=== PATIENT | male | born 1935 | race Caucasian/White ===

== ENCOUNTER 2018-05-28 06:55 | Observation (INO) | payer MEDICARE, OTHER ==
[2018-05-28] MEDS ORDERED: ASPIRIN 81 MG TABLET, CHEWABLE PO ONE (07:12)
[2018-05-28] MEDS ORDERED: NITROGLYCERIN 0.4 MG/TAB 25 TAB/BOTTLE SL PRN (07:30)
[2018-05-28 07:36] LABS: ABSOLUTE EOSINOPHILS # (AUTO) 0.3 10^3/uL (0.0-0.6); ABSOLUTE LYMPHOCYTES (AUTO) 1.4 10^3/uL (0.5-4.7); ABSOLUTE MONOCYTES (AUTO) 0.7 10^3/uL (0.1-1.4); ABSOLUTE NEUT (AUTO) 3.3 10^3/uL (1.7-8.2); BASOPHILS % (AUTO) 0.7 % (0-2); EOSINOPHILS % (AUTO) 5.3 % (0-6); HEMATOCRIT 40.2 % (37.9-51.0); HEMOGLOBIN 13.8 g/dL (13.5-17.0); LYMPHOCYTES % (AUTO) 24.2 % (13-45); MEAN CORPUSCULAR HGB CONC 34.4 g/dL (32.0-36.0); MEAN CORPUSCULAR VOLUME 99 fl (80-97); MONOCYTES % (AUTO) 12.2 % (3-13); PLATELET COUNT 239 10^3/uL (150-450); RED BLOOD COUNT 4.06 10^6/uL (4.35-5.55); RED CELL DISTRIBUTION WIDTH 14.4 % (11.5-14.0); SEGMENTED NEUTROPHILS % (AUTO) 57.6 % (42-78); TOTAL CELLS COUNTED % (AUTO) 100 %; WHITE BLOOD COUNT 5.7 10^3/uL (4.0-10.5)
[2018-05-28 07:51] LABS: ALANINE AMINOTRANSFERASE 40 U/L (21-72); ALBUMIN 4.1 g/dL (3.5-5.0); ALKALINE PHOSPHATASE 64 U/L (38-126); ANION GAP 12 (5-19); ASPARTATE AMINO TRANSFERASE 36 U/L (17-59); BILIRUBIN,DIRECT 0.3 mg/dL (0.0-0.4); BILIRUBIN,TOTAL 0.6 mg/dL (0.2-1.3); BLOOD UREA NITROGEN 19 mg/dL (7-20); CALCIUM 9.2 mg/dL (8.4-10.2); CARBON DIOXIDE 31 mmol/L (22-30); CHLORIDE 103 mmol/L (98-107); CREATINE KINASE 167 U/L (55-170); GLUCOSE 84 mg/dL (75-110); POTASSIUM 4.4 mmol/L (3.6-5.0); SODIUM 145.9 mmol/L (137-145)
--- NOTE | 2018-05-28 07:59 | RADIOLOGY REPORT (SQ) ---
EXAM DESCRIPTION: XR CHEST 1 VIEW COMPLETED DATE/TME: 05/28/2018 07:12 CLINICAL HISTORY: cp COMPARISON: 08/12/2016 FINDINGS: Single frontal view of the chest. The cardiomediastinal silhouette has normal size and contour. No consolidation, pneumothorax, or pleural effusion. Postoperative change in the bilateral shoulders. Leads overlie the chest. Upper abdominal soft tissues are unremarkable. IMPRESSION: 1. No acute pulmonary process identified.
[2018-05-28 08:01] LABS: CREATINE KINASE MB 1.77 ng/mL (<4.55); TROPONIN I < 0.012 ng/mL
--- NOTE | 2018-05-28 08:24 | EKG REPORT ---
SEVERITY:- ABNORMAL ECG - SINUS RHYTHM MULTIPLE ATRIAL PREMATURE COMPLEXES PROBABLE LEFT ATRIAL ABNORMALITY : Confirmed by: Jana Mcqueen MD 28-May-2018 08:22:46
--- NOTE | 2018-05-28 09:50 | ER Document Report ---
ED General - General Chief Complaint: Chest Pain Stated Complaint: CHEST PAIN Time Seen by Provider: 05/28/18 07:09 TRAVEL OUTSIDE OF THE [place] IN LAST 30 DAYS: No - HPI Patient complains to provider of: Chest pain Notes: Patient coming in for chest pain. Patient states woke up this morning with a left-sided chest pain going to his left shoulder into the left side of his neck. Patient states sharp shooting. Patient states ongoing since 5:00 this morning. Patient denies any nausea vomiting fevers chills diarrhea. Patient does have a history of hypertension hyperlipidemia and coronary artery disease. Patient states he is followed by Dr. Menendez [place] [facility] [place] Patient states last time he had his stents evaluated was in 2005. Patient states no dynamic testing since that time. Patient states pain is reproducible whenever he does move. Denies any new physical activity. Upon my evaluation patient still stating he is in significant amount of pain. Holding his chest - Related Data Allergies/Adverse Reactions: promethazine HCl [From Phenergan] Allergy (Verified 03/19/13 13:28) ITCHING Past Medical History - Social History Smoking Status: Never Smoker Chew tobacco use (# tins/day): No Frequency of alcohol use: None Drug Abuse: None Family History: None Patient has suicidal ideation: No Patient has homicidal ideation: No - Past Medical History Cardiac Medical History: Reports: Hx Coronary Artery Disease, Hx Hypercholesterolemia, Hx Hypertension - on meds Denies: Hx Heart Attack Pulmonary Medical History: Reports: Hx Bronchitis - hx colds, Hx Pneumonia - Denies: Hx Asthma, Hx COPD Neurological Medical History: Denies: Hx Cerebrovascular Accident, Hx Seizures Renal/ Medical History: Denies: Hx Peritoneal Dialysis GI Medical History: Reports: Hx Gastroesophageal Reflux Disease. Denies: Hx Hepatitis, Hx Hiatal Hernia, Hx Ulcer Musculoskeletal Medical History: Reports Hx Arthritis Infectious Medical History: Denies: Hx Hepatitis Past Surgical History: Reports: Hx Appendectomy, Hx Cardiac Catheterization - 3 stents, last one was 2005, Hx Cholecystectomy, Hx Orthopedic Surgery - back, bilateral shoulder, right finger. Denies: Hx Open Heart Surgery, Hx Pacemaker - Immunizations Hx Diphtheria, Pertussis, Tetanus Vaccination: Yes Hx Pneumococcal Vaccination: 08/23/12 Review of Systems - Review of Systems Constitutional: No symptoms reported EENT: No symptoms reported Cardiovascular: Chest pain Respiratory: No symptoms reported Gastrointestinal: No symptoms reported Genitourinary: No symptoms reported Male Genitourinary: No symptoms reported Musculoskeletal: No symptoms reported Skin: No symptoms reported Hematologic/Lymphatic: No symptoms reported Neurological/Psychological: No symptoms reported -: Yes All other systems reviewed and negative Physical Exam - Vital signs Vitals: Temp Pulse Resp BP Pulse Ox 97.3 F 55 L 22 H 150/60 H 97 05/28/18 07:05 05/28/18 07:05 05/28/18 07:05 05/28/18 07:05 05/28/18 07:05 Interpretation: Normal - General General appearance: Appears well, Alert - HEENT Head: Normocephalic, Atraumatic Eyes: Normal Pupils: PERRL - Respiratory Respiratory status: No respiratory distress Chest status: Nontender Breath sounds: Normal Chest palpation: Normal - Cardiovascular Rhythm: Regular Heart sounds: Normal auscultation Murmur: No - Abdominal Inspection: Normal Distension: No distension Bowel sounds: Normal Tenderness: Nontender Organomegaly: No organomegaly - Back Back: Normal, Nontender - Extremities General upper extremity: Normal inspection, Nontender, Normal color, Normal ROM , Normal temperature General lower extremity: Normal inspection, Nontender, Normal color, Normal ROM , Normal temperature, Normal weight bearing. No: Boris's sign - Neurological Neuro grossly intact: Yes Cognition: Normal Orientation: AAOx4 Sadaf Coma Scale Eye Opening: Spontaneous Sadaf Coma Scale Verbal: Oriented Sadaf Coma Scale Motor: Obeys Commands Sadaf Coma Scale Total: 15 Speech: Normal Motor strength normal: LUE, RUE, LLE, RLE Sensory: Normal - Psychological Associated symptoms: Normal affect, Normal mood - Skin Skin Temperature: Warm Skin Moisture: Dry Skin Color: Normal Course - Re-evaluation Re-evalutation: 05/28/18 13:45 EKG showed no critical pathology. First troponin is negative. Patient pain was not relieved by nitro however upon reevaluation patient resting company states that pain again only comes when he moves around. Patient still has no pain to palpation. Possibility of muscle skeletal etiology of the patient's pain however due the patient's past medical history do feel the patient warrants admission to the hospital for further evaluation serial troponins rule out. Discussed with hospitalist will admit patient for observation telemetry - Vital Signs Vital signs: Temp Pulse Resp BP Pulse Ox 97.6 F 56 L 16 138/65 H 96 05/28/18 11:43 05/28/18 11:43 05/28/18 11:43 05/28/18 11:43 05/28/18 11:43 - Laboratory Result Diagrams: 05/28/18 07:25 05/28/18 07:25 Laboratory results interpreted by me: 05/28/18 05/28/18 07:25 07:25 RBC 4.06 L MCV 99 H MCH 34.0 H RDW 14.4 H Sodium 145.9 H Carbon Dioxide 31 H Discharge - Discharge Clinical Impression: Chest pain, rule out acute myocardial infarction Condition: Good Disposition: ADMITTED OBSERVATION Admitting Provider: Hospitalist - [facility] Unit Admitted: Telemetry
[2018-05-28 11:12] LABS: APPEARANCE,URINE CLEAR; BILIRUBIN,URINE NEGATIVE (NEGATIVE); COLOR,URINE YELLOW; GLUCOSE, URINE NEGATIVE (NEGATIVE); KETONES,URINE NEGATIVE (NEGATIVE); LEUKOCYTE ESTERASE,URINE NEGATIVE (NEGATIVE); NITRITE,URINE NEGATIVE (NEGATIVE); PROTEIN,URINE NEGATIVE (NEGATIVE); UROBILINOGEN,URINE NEGATIVE mg/dL (<2.0)
[2018-05-28 12:29] VITALS: BP 138/65
--- NOTE | 2018-05-28 14:45 | PDOC CONSULTATION ---
Consultation Consult Date: 05/28/18 Consult reason:: chest pain History of Present Illness Admission Date/PCP: 05/28/18 10:13 EZRA ZAPATA MD Patient complains of: chest pain for a few weeks History of Present Illness: JESUS ALBERTO DELEON is a 82 year old male with a PMH significant for CAD s/p stents and HLD who presents with left sided chest pain that also went his left shoulder/ arm. Patient states that pain has been going on for "a few weeks". He describes the pain as sharp, intermittent, no worse with activity. Denies diaphoresis, SOB , abdominal, N/V. Patient has been followed by his primary advertising account manager in [place] who did a recent EKG. He denies recent trauma or injury to chest wall. Stents were placed in 2005. States that he received a nitro in the ED and it did "nothing other than cause a headache". Pain is worst when pressing along chest wall. NO other complaints. In ED, EKG and first troponin was negative. Remainder of labs were unremarkable. ER called hopsitalist service to see patient. By the time that patient was seen, he was already moved to telemetry floor. Second trop ordered and negative. Patient's chest pain was improved and he wanted to go home. He was NOT admitted and discharged in stable condition. This note will serve as a consult note. Past Medical History Cardiac Medical History: Reports: Coronary Artery Disease, Hyperlipidema, Hypertension - on meds Denies: Myocardial Infarction Pulmonary Medical History: Reports: Bronchitis - hx colds, Pneumonia - 11/26 Denies: Asthma, Chronic Obstructive Pulmonary Disease (COPD) Neurological Medical History: Denies: Seizures GI Medical History: Reports: Gastroesophageal Reflux Disease Denies: Hepatitis, Hiatal Hernia Musculoskeltal Medical History: Reports: Arthritis Hematology: Reports: Anemia - hx of Denies: Sickle Cell Disease Past Surgical History Past Surgical History: Reports: Appendectomy, Cardiac Catheterization - 3 stents , last one was 2005, Cholecystectomy, Orthopedic Surgery - back, bilateral shoulder, right finger Denies: Pacemaker Social History Information Source: Patient Smoking Status: Never Smoker Frequency of Alcohol Use: None Hx Recreational Drug Use: No Hx Prescription Drug Abuse: No - Advance Directive Resuscitation Status: Full Code Family History Family History: None Parental Family History Reviewed: No Children Family History Reviewed: NA Sibling(s) Family History Reviewed.: NA Medication/Allergy Home Medications: Alprazolam [Xanax 0.5 Mg Tablet] 0.5 mg PO 03/19/13 Aspirin [Ecotrin 81 mg EC Tablet] 81 mg PO DAILY 03/19/13 Diltiazem HCl [Cardizem Cd 120 Mg Capsule] 120 mg PO DAILY 03/19/13 Levothyroxine Sodium [Synthroid 0.112 mg Tablet] 0.112 mg PO DAILY 03/19/13 Dexlansoprazole [Dexilant 30 mg Capsule] 60 mg PO DAILY 05/02/13 Multivitamin [Multi Vitamin Daily] 1 each PO DAILY 05/02/13 Pravastatin Sodium [Pravachol] 20 mg PO DAILY 05/02/13 Vitamin B 12 1 INJ ASDIR PRN 05/02/13 Acetaminophen with Codeine [Tylenol with Codeine #3 Tablet] 1 tab PO Q4 PRN Ondansetron [Zofran Odt 4 mg Tablet] 1 - 2 tab PO Q4H PRN #15 tab.rapdis Allergies/Adverse Reactions: promethazine HCl [From Phenergan] Allergy (Verified 03/19/13 13:28) ITCHING Review of Systems All systems: reviewed and no additional remarkable complaints except as stated Physical Exam Vital Signs: Temp Pulse Resp BP Pulse Ox 97.6 F 56 L 16 138/65 H 96 05/28/18 11:43 05/28/18 11:43 05/28/18 11:43 05/28/18 11:43 05/28/18 11:43 Intake & Output 05/27/18 05/28/18 05/29/18 06:59 06:59 06:59 Weight 64.6 kg General appearance: PRESENT: no acute distress, cooperative, thin Head exam: PRESENT: atraumatic, normocephalic Cardiovascular exam: PRESENT: RRR, other - Point tenderness on left chest wall. Reproduciable on multiple attempts. ABSENT: systolic murmur, tachycardia GI/Abdominal exam: PRESENT: normal bowel sounds, soft. ABSENT: tenderness Neurological exam: PRESENT: alert, awake, CN II-XII grossly intact Psychiatric exam: PRESENT: appropriate affect Skin exam: PRESENT: dry, intact Results Laboratory Results: 05/28/18 12:30 Troponin I < 0.012 Impressions: Chest X-Ray 05/28/18 07:12 IMPRESSION: 1. No acute pulmonary process identified. Assessment & Plan - Diagnosis (1) Atypical chest pain Is this a current diagnosis for this admission?: Yes Plan: Patient has a history of CAD however current CP episode is most likely to be MSK in origin given point tenderness on exam. His EKG was unremarkable and troponin negative * 2. Patient was feeling well and eager for discharge to go home. OUTpatient plan - Take NSAIDs prn MSK pain - Follow up with PCP and/or advertising account manager - If chest pain worsens or there is new symptomology, return to ED for re- evaluation - Pt and his agreeable. (2) CAD (coronary artery disease) Is this a current diagnosis for this admission?: Yes Plan: Known history of CAD on ASA 81mg (3) Hypothyroidism Is this a current diagnosis for this admission?: Yes Plan: Continue home synthroid dose (4) HTN (hypertension) Is this a current diagnosis for this admission?: Yes Plan: Continue home cardizem at discharge - Time Time Spent: 50 to 70 Minutes Anticipated discharge: Home
== END 2018-05-28 14:30 | disposition home or self-care (01) ==
LOC: ER 06:55 → EH 10:13 → 4S 11:34
PROVIDERS: ADMIT Student in an Organized Health Care Education/Training Program; ATTEND Student in an Organized Health Care Education/Training Program
DX: R07.89 Other chest pain (principal); I25.10 Atherosclerotic heart disease of native coronary artery without angina pectoris; E03.9 Hypothyroidism, unspecified; I10 Essential (primary) hypertension; E78.5 Hyperlipidemia, unspecified; G44.40 Drug-induced headache, not elsewhere classified, not intractable; T46.3X5A Adverse effect of coronary vasodilators, initial encounter; Y92.538 Other ambulatory health services establishments as the place of occurrence of the external cause; K21.9 Gastro-esophageal reflux disease without esophagitis; Z95.5 Presence of coronary angioplasty implant and graft; Z90.49 Acquired absence of other specified parts of digestive tract; Z87.01 Personal history of pneumonia (recurrent); Z87.09 Personal history of other diseases of the respiratory system; Z79.82 Long term (current) use of aspirin; Z79.899 Other long term (current) drug therapy
CPT/HCPCS: 36415; 71045; 80053; 81001; 82550; 82553; 84484; 85025; 93005; 93010; 99285

== ENCOUNTER 2019-07-26 13:04 | Emergency (ER) | payer MEDICARE, OTHER ==
--- NOTE | 2019-07-26 13:32 | ER Document Report ---
ED Medical Screen (RME) - General Chief Complaint: Fall Stated Complaint: FALL Time Seen by Provider: 07/26/19 13:28 Primary Care Provider: EZRA ZAPATA MD [Primary Care Provider] - Follow up as needed Mode of Arrival: Ambulatory Information source: Patient Notes: 83 anything in the front need for pain to the right flank area a bout for feet off of scaffolding that he went up to remove gunner from something that was put in wrong. He states the scaffolding tipped over making him fall and he landed on his right flank area. He does have bruises to the area the right lung is diminished compared to the left. I have greeted and performed a rapid initial assessment of this patient. A comprehensive ED assessment and evaluation of the patient, analysis of test results and completion of medical decision making process will be conducted by an additional ED providers. TRAVEL OUTSIDE OF THE [place] IN LAST 30 DAYS: No - Related Data Allergies/Adverse Reactions: promethazine HCl [From Phenergan] Allergy (Verified 07/26/19 13:07) ITCHING Past Medical History - Past Medical History Cardiac Medical History: Reports: Hx Coronary Artery Disease, Hx Hypercholesterolemia, Hx Hypertension - on meds Denies: Hx Heart Attack Pulmonary Medical History: Reports: Hx Bronchitis - hx colds, Hx Pneumonia - 11/26 Denies: Hx Asthma, Hx COPD Neurological Medical History: Denies: Hx Cerebrovascular Accident, Hx Seizures Renal/ Medical History: Denies: Hx Peritoneal Dialysis GI Medical History: Reports: Hx Gastroesophageal Reflux Disease. Denies: Hx Hepatitis, Hx Hiatal Hernia, Hx Ulcer Musculoskeltal Medical History: Reports Hx Arthritis Infectious Medical History: Denies: Hx Hepatitis Past Surgical History: Reports: Hx Appendectomy, Hx Cardiac Catheterization - 3 stents, last one was 2005, Hx Cholecystectomy, Hx Orthopedic Surgery - back, bilateral shoulder, right finger. Denies: Hx Open Heart Surgery, Hx Pacemaker - Immunizations Hx Diphtheria, Pertussis, Tetanus Vaccination: Yes History of Influenza Vaccine for 08/2017 - 01/2018 Season: Yes Influenza Administration Date for 08/2017 - 01/2018 Season: 08/14/17 Physical Exam - Vital signs Vitals: Temp Pulse Resp BP Pulse Ox 97.4 F 65 18 141/61 H 100 07/26/19 13:11 07/26/19 13:11 07/26/19 13:11 07/26/19 13:11 07/26/19 13:11 Course - Vital Signs Vital signs: Temp Pulse Resp BP Pulse Ox 97.4 F 65 18 141/61 H 100 07/26/19 13:11 07/26/19 13:11 07/26/19 13:11 07/26/19 13:11 07/26/19 13:11 Doctor's Discharge - Discharge Referrals: EZRA ZAPATA MD [Primary Care Provider] - Follow up as needed
--- NOTE | 2019-07-26 13:59 | RADIOLOGY REPORT (SQ) ---
EXAM DESCRIPTION: RIBS RIGHT W/PA CHEST COMPLETED DATE/TIME: 07/26/2019 1:49 pm REASON FOR STUDY: fall diminished on right rib pain COMPARISON: Chest radiograph, 05/28/2018 TECHNIQUE: Frontal view of the chest and additional views of the right ribs acquired. NUMBER OF VIEWS: Three view. LIMITATIONS: None. FINDINGS: FRONTAL CXR: No pneumothorax. No pleural effusion. No atelectasis or infiltrates. RIBS: Minimally displaced fractures of the lateral right 9th and 10th ribs. OTHER: No other significant finding. IMPRESSION: Minimally displaced fractures of the lateral right 9th and 10th ribs. No pneumothorax o r pleural effusion. COMMENT: SITE OF TRAUMA/COMPLAINT MARKED/STAMP COMPLETED: YES. TECHNICAL DOCUMENTATION: JOB ID: [id number] [employer]- All Rights Reserved Reading location - IP/workstation name: [email or web address]
[2019-07-26 14:18] LABS: ABSOLUTE BASOPHILS # (AUTO) 0.1 10^3/uL (0.0-0.2); ABSOLUTE EOSINOPHILS # (AUTO) 0.1 10^3/uL (0.0-0.6); ABSOLUTE LYMPHOCYTES (AUTO) 0.9 10^3/uL (0.5-4.7); ABSOLUTE MONOCYTES (AUTO) 0.9 10^3/uL (0.1-1.4); ABSOLUTE NEUT (AUTO) 7.6 10^3/uL (1.7-8.2); BASOPHILS % (AUTO) 0.6 % (0-2); EOSINOPHILS % (AUTO) 1.4 % (0-6); HEMATOCRIT 38.5 % (37.9-51.0); HEMOGLOBIN 13.2 g/dL (13.5-17.0); LYMPHOCYTES % (AUTO) 9.6 % (13-45); MEAN CORPUSCULAR HEMOGLOBIN 34.1 pg (27.0-33.4); MEAN CORPUSCULAR HGB CONC 34.4 g/dL (32.0-36.0); MEAN CORPUSCULAR VOLUME 99 fl (80-97); MONOCYTES % (AUTO) 8.9 % (3-13); PLATELET COUNT 241 10^3/uL (150-450); RED BLOOD COUNT 3.88 10^6/uL (4.35-5.55); RED CELL DISTRIBUTION WIDTH 14.4 % (11.5-14.0); SEGMENTED NEUTROPHILS % (AUTO) 79.5 % (42-78); TOTAL CELLS COUNTED % (AUTO) 100 %; WHITE BLOOD COUNT 9.6 10^3/uL (4.0-10.5)
[2019-07-26 14:23] LABS: INTERNATIONAL RATION (INR) 0.92; PROTHROMBIN TIME 12.4 SEC (11.4-15.4)
[2019-07-26 14:24] LABS: PARTIAL THROMBOPLASTIN TIME 26.8 SEC (23.5-35.8)
[2019-07-26 14:35] LABS: ALBUMIN 4.4 g/dL (3.5-5.0); ALKALINE PHOSPHATASE 66 U/L (38-126); ANION GAP 8 (5-19); ASPARTATE AMINO TRANSFERASE 34 U/L (17-59); BILIRUBIN,DIRECT 0.2 mg/dL (0.0-0.4); BILIRUBIN,TOTAL 0.5 mg/dL (0.2-1.3); BLOOD UREA NITROGEN 17 mg/dL (7-20); CALCIUM 9.4 mg/dL (8.4-10.2); CARBON DIOXIDE 29 mmol/L (22-30); CHLORIDE 101 mmol/L (98-107); CREATINE KINASE 155 U/L (55-170); GLUCOSE 111 mg/dL (75-110); POTASSIUM 4.8 mmol/L (3.6-5.0); TOTAL PROTEIN 7.3 g/dL (6.3-8.2)
[2019-07-26 14:54] LABS: CREATINE KINASE MB 1.53 ng/mL (<4.55)
[2019-07-26 14:55] LABS: TROPONIN I < 0.012 ng/mL
[2019-07-26] MEDS ORDERED: MORPHINE SULFATE 10 MG/ML INJ IM ONE (15:40)
[2019-07-26] MEDS ORDERED: ONDANSETRON 4 MG TAB.RAPDIS PO ONE (16:14)
[2019-07-26] MEDS ORDERED: OXYCODONE-ACETAMINOPHEN 5-325 MG TABLET PO ONE (18:01)
--- NOTE | 2019-07-26 18:29 | RADIOLOGY REPORT (SQ) ---
EXAM DESCRIPTION: CT CHEST WITHOUT COMPLETED DATE/TIME: 07/26/2019 6:03 pm REASON FOR STUDY: Fractured ribs COMPARISON: Rib radiographs 07/26/2019 TECHNIQUE: CT scan performed of the chest without intravenous contrast. Images reviewed with lung, soft tissue and bone windows. Reconstructed coronal and sagittal MPR images reviewed. All images st ored on PACS. All CT scanners at this facility use dose modulation, iterative reconstruction, and/or weight based d osing when appropriate to reduce radiation dose to as low as reasonably achievable (ALARA). [facility]: Dose Right [facility]: CareDose [facility]: Dose Right [facility]: Teradose 4D [facility]: Smart Infot[employer] RADIATION DOSE: CT Rad equipment meets quality standard of care and radiation dose reduction techniq ues were employed. CTDIvol: 8.8 mGy. DLP: 333 mGy-cm. mGy. LIMITATIONS: No technical limitations. FINDINGS: LUNGS AND PLEURA: No masses, infiltrates, or pneumothorax. No pleural effusions or pleura l calcifications. HILAR AND MEDIASTINAL STRUCTURES: No identified masses or abnormal nodes. No obvious aneurysm. HEART AND VASCULAR STRUCTURES: No aneurysm. No pericardial effusion. UPPER ABDOMEN: No significant finding. THYROID AND OTHER SOFT TISSUES: No masses. No adenopathy. BONES: Nondisplaced fractures of the 9th and 10th ribs. HARDWARE: None in the chest. OTHER: No other significant findings. IMPRESSION: Rib fractures. No pneumothorax. No acute finding within the thorax. TECHNICAL DOCUMENTATION: JOB ID: [id number] Quality ID # [id number]: Final reports with documentation of one or more dose reduction techniques (e.g., Au tomated exposure control, adjustment of the mA and/or kV according to patient size, use of iterative reconstruction technique) 2010 [employer]- All Rights Reserved Reading location - IP/workstation name: [email or web address]
--- NOTE | 2019-07-26 18:57 | ER Document Report ---
ED Fall - General Chief Complaint: Fall Stated Complaint: FALL Time Seen by Provider: 07/26/19 13:28 Primary Care Provider: EZRA ZAPATA MD [Primary Care Provider] - Follow up as needed Mode of Arrival: Ambulatory Information source: Patient Notes: Patient fell off of some scaffolding about 2 feet in the air and landed on his right thoracic region on the scaffolding. He is complaining of severe pain in the right ribs from the right posterior lower rib cage around to the lower sternum. Does not feel short of breath or having any difficulty breathing except for some localized pain to the right thorax. Denies head injury or neck injury. No loss of consciousness and no neurologic deficits. No abdominal pains. TRAVEL OUTSIDE OF THE [place] IN LAST 30 DAYS: No - Related data Allergies/Adverse Reactions: promethazine HCl [From Phenergan] Allergy (Verified 07/26/19 13:07) ITCHING Past Medical History - General Information source: Patient - Social History Smoking Status: Never Smoker Chew tobacco use (# tins/day): No Frequency of alcohol use: None Drug Abuse: None Family History: None, Reviewed & Not Pertinent Patient has suicidal ideation: No Patient has homicidal ideation: No - Past Medical History Cardiac Medical History: Reports: Hx Coronary Artery Disease, Hx Hypercholesterolemia, Hx Hypertension - on meds Pulmonary Medical History: Reports: Hx Bronchitis - hx colds, Hx Pneumonia - 11/26 Renal/ Medical History: Denies: Hx Peritoneal Dialysis GI Medical History: Reports: Hx Gastroesophageal Reflux Disease Musculoskeletal Medical History: Reports Hx Arthritis Infectious Medical History: Denies: Hx Hepatitis Past Surgical History: Reports: Hx Appendectomy, Hx Cardiac Catheterization - 3 stents, last one was 2005, Hx Cholecystectomy, Hx Orthopedic Surgery - back, bilateral shoulder, right finger. Denies: Hx Open Heart Surgery, Hx Pacemaker - Immunizations Hx Diphtheria, Pertussis, Tetanus Vaccination: Yes Hx Pneumococcal Vaccination: 08/23/12 Review of Systems - Review of Systems Notes: CONSTITUTIONAL : Denies fever. CARDIOVASCULAR: Denies chest pain. RESPIRATORY: Denies cough, chest congestion, or shortness of breath. See HPI. GASTROINTESTINAL: Denies abdominal pain or nausea, vomiting, or diarrhea. GENITOURINARY: Denies difficulty or painful urinating, urinary frequency, blood in urine. Physical Exam - Vital signs Vitals: Temp Pulse Resp BP Pulse Ox 97.4 F 65 18 141/61 H 100 09/12/19 13:11 07/26/19 13:11 07/26/19 13:11 07/26/19 13:11 07/26/19 13:11 Interpretation: Normal Notes: PHYSICAL EXAMINATION: GENERAL: Well-appearing, no acute distress. Holding the right lateral lower ribs into the right flank region with his left hand. HEAD: Atraumatic, normocephalic. NECK: Normal range of motion, supple. LUNGS: Breath sounds clear and equal bilaterally. Extremely tender to press the lower right ribs from the right flank area around to the lower sternum at the xiphoid. Bruising visible over the lower ribs. No crepitus felt. HEART: Regular rate and rhythm without murmurs heard. ABDOMEN: Soft, nontender. No guarding or rebound or masses felt. No tenderness over the liver. Course - Vital Signs Vital signs: Temp Pulse Resp BP Pulse Ox 98.2 F 72 18 137/65 H 97 07/26/19 19:00 07/26/19 19:00 07/26/19 19:00 07/26/19 19:00 07/26/19 19:00 - Laboratory Result Diagrams: 07/26/19 14:00 07/26/19 14:00 Laboratory results interpreted by me: 07/26/19 07/26/19 14:00 14:00 RBC 3.88 L Hgb 13.2 L MCV 99 H MCH 34.1 H RDW 14.4 H Lymph % (Auto) 9.6 L Seg Neutrophils % 79.5 H Glucose 111 H - Diagnostic Test Radiology reviewed: Image reviewed, Reports reviewed - Chest x-ray and CT scan of the chest, noncontrasted, show fractures of the ninth and 10th ribs with no displacement. No pneumothorax. No effusion. Discharge - Discharge Clinical Impression: Fracture, ribs Condition: Stable Disposition: HOME, SELF-CARE Additional Instructions: Rib Injuries and Fractures You have been diagnosed as having either bruised or broken ribs. These two injuries are treated in the same way. It will usually take four to six weeks for these injured ribs to heal. Sometimes, rib belts or anesthetic injections of the chest wall help reduce the pain. If you are using a rib belt, you should cough or take a deep breath at least every hour or two to prevent lung complications. You should not engage in any strenuous physical activity until released by your physician. The usual rule is "if it hurts, don't do it." Rib fractures can lead to serious lung complications including lung collapse, hemorrhage, and pneumonia. You should call the physician or return at once if any of the following occur: (1) Fever or chills. (2) Persistent cough, coughing up blood, or shortness of breath. (3) Increasing pain. (4) Weakness, lightheadedness, or fainting. Oral Narcotic Medication You have been given a prescription for pain control. This medication is a narcotic. It's best taken with food, as nausea can result if taken on an empty stomach. Don't operate machinery or drive within six hours of taking this medication. Do not combine this medicine with alcohol, or with any medication which can cause sedation (such as cold tablets or sleeping pills) unless you get permission from the physician. Narcotics tend to cause constipation. If possible, drink plenty of fluids and eat a diet high in fiber and fruits. Antinausea Medication You have been given a medication to suppress nausea and vomiting. This type of medication can be given as a shot, pill, or suppository. It will usually last for many hours. Pills and shots usually last six to eight hours, suppositories last about 12 hours. For the typical illness, only one or two doses of the medication may be necessary. Mild lightheadedness may occur. This type of medicine can cause drowsiness. Do not drive or operate dangerous machinery while under its influence. Do not mix with alcohol. See your doctor at once if you have muscle spasms or tightness, or uncontrollable motions (particularly of the neck, mouth, or jaw). Persistent vomiting or severe lightheadedness should also be evaluated by the physician. FOLLOW-UP CARE: If you have been referred to a physician for follow-up care, call the physicians office for an appointment as you were instructed or within the next two days. If you experience worsening or a significant change in your symptoms, notify the physician immediately or return to the Emergency Department at any time for re-evaluation. At this time, your injury appears to be stable. You had 2 fractured ribs. There does not appear to be any evidence of injury to your lung. If you develop significant worsening of pain or breathing difficulty, return for us to reevaluate your condition. Plan on limited activity for at least a week. After that, your activity level can be adjusted for your pain level. Your ribs will take a total of about 6 weeks to completely and totally healed. Prescriptions: Oxycodone HCl/Acetaminophen [Percocet 5-325 mg Tablet] 1 tab PO Q4HP PRN #15 tablet PRN Reason: Ondansetron [Zofran Odt 4 mg Tablet] 1 - 2 tab PO Q4H PRN #15 tab.rapdis PRN Reason: For Nausea/Vomiting Referrals: EZRA ZAPATA MD [Primary Care Provider] - Follow up as needed
[2019-07-26 19:14] VITALS: BP 137/65
--- NOTE | 2019-07-27 08:53 | EKG REPORT ---
SEVERITY:- BORDERLINE ECG - SINUS RHYTHM ATRIAL PREMATURE COMPLEX PROBABLE LEFT ATRIAL ABNORMALITY : Confirmed by: Jana Mcqueen MD 27-Jul-2019 08:52:[id number]
== END 2019-07-26 19:00 | disposition home or self-care (01) ==
LOC: ER 13:04
DX: S22.41XA Multiple fractures of ribs, right side, initial encounter for closed fracture (principal); M54.6 Pain in thoracic spine; W17.89XA Other fall from one level to another, initial encounter; Y99.0 Civilian activity done for income or pay; I25.10 Atherosclerotic heart disease of native coronary artery without angina pectoris; E78.00 Pure hypercholesterolemia, unspecified; I10 Essential (primary) hypertension; Z90.49 Acquired absence of other specified parts of digestive tract
CPT/HCPCS: 93005; 99284; 96372; 36415; 82553; 82550; 85025; 85610; 85730; 80053; 84484; 71101; 71250; 93010; A9270 ×2; J2270; S0119